=== PATIENT | male | born 1945 | race African-American/Black ===

== ENCOUNTER 2017-04-24 16:02 | Emergency (ER) | payer MEDICARE, MEDICAID ==
[~2017-04-24] VITALS: Ht 182.9 cm; Wt 86.0 kg
[2017-04-24 16:03] VITALS: BP 143/89
== END 2017-04-24 19:10 | disposition left against medical advice (07) ==
LOC: ER 16:25
DX: H57.8 Other specified disorders of eye and adnexa (principal); Z53.21 Procedure and treatment not carried out due to patient leaving prior to being seen by health care provider

== ENCOUNTER 2017-04-26 10:05 | Emergency (ER) | payer MEDICARE, MEDICAID ==
[~2017-04-26] VITALS: Ht 185.4 cm; Wt 75.3 kg
[2017-04-26] MEDS ORDERED: PILOCARPINE HCL 2% OPHTH DROPS 15ML RIGHTEYE SCH (16:15)
[2017-04-26] MEDS ORDERED: TIMOLOL MALEATE 0.25% OPHTH DROPS 5ML RIGHTEYE SCH (16:15)
[2017-04-26] MEDS ORDERED: ACETAZOLAMIDE 250MG TABLET PO ONE (16:15)
[2017-04-26 23:00] VITALS: BP 113/67
== END 2017-04-27 07:30 | disposition home or self-care (01) ==
LOC: ER 11:11
DX: H54.61 Unqualified visual loss, right eye, normal vision left eye (principal); H40.9 Unspecified glaucoma; F17.210 Nicotine dependence, cigarettes, uncomplicated
CPT/HCPCS: 99284

== ENCOUNTER 2017-05-14 12:29 | Emergency (ER) | payer MEDICARE, MEDICAID ==
[~2017-05-14] VITALS: Ht 185.4 cm; Wt 86.0 kg
[2017-05-14 14:14] VITALS: BP 104/74
== END 2017-05-14 17:47 | disposition home or self-care (01) ==
LOC: ER 13:21
DX: H54.61 Unqualified visual loss, right eye, normal vision left eye (principal); H57.11 Ocular pain, right eye; H40.9 Unspecified glaucoma; F17.200 Nicotine dependence, unspecified, uncomplicated
CPT/HCPCS: 99283

== ENCOUNTER 2017-06-09 00:11 | Emergency (ER) | payer MEDICARE, MEDICAID ==
[~2017-06-09] VITALS: Ht 182.9 cm; Wt 72.0 kg
[2017-06-09 01:33] LABS: BASOPHILS % 1.2 % (0.0-2.0); EOSINOPHILS % 1.3 % (0.0-5.0); HEMATOCRIT. 34.8 % (42.0-52.0); LYMPHOCYTES % 24.9 % (20.0-50.0); MEAN CORPUSCULAR VOLUME 72.4 fL (80.0-94.0); MEAN PLATELET VOLUME 6.9 fl (7.4-10.4); MONOCYTES % 9.1 % (2.0-8.0); NEUTROPHILS % 63.5 % (40.0-76.0); PLATELET 178 x1000/uL (130-400); RED CELL DISTRIBUTION WIDTH 16.9 % (11.6-14.6)
[2017-06-09 01:35] LABS: CHLORIDE 106 mEq/L (98-107)
[2017-06-09 01:44] LABS: CARBON DIOXIDE 28 mEq/L (21-32); ETHANOL BLOOD < 10 mg/dL
[2017-06-09 02:50] LABS: CLARITY URINE CLEAR (CLEAR); COLOR URINE YELLOW (YELLOW); GLUCOSE URINE NEGATIVE (NEGATIVE); KETONES URINE TRACE (NEGATIVE); LEUKOCYTE ESTERASE URINE 2+ (NEGATIVE); NITRITE URINE NEGATIVE (NEGATIVE); OCCULT BLOOD URINE 1+ (NEGATIVE); PROTEIN URINE NEGATIVE (NEGATIVE); SPECIFIC GRAVITY URINE 1.023 (1.005-1.030)
[2017-06-09 03:22] LABS: *AMPHETAMINES SCREEN URINE NEGATIVE (NEGATIVE); *BARBITURATES SCREEN URINE NEGATIVE (NEGATIVE); *BENZODIAZEPINES SCREEN URINE NEGATIVE (NEGATIVE); *COCAINE SCREEN URINE NEGATIVE (NEGATIVE); CANNABINOID URINE SCREEN NEGATIVE (NEGATIVE); METHADONE URINE SCREEN NEGATIVE (NEGATIVE); OPIATES URINE SCREEN NEGATIVE (NEGATIVE); PHENCYCLIDINE URINE SCREEN NEGATIVE (NEGATIVE)
[2017-06-09] MEDS ORDERED: CEFTRIAXONE 1 G PREMIX 50 ML IV NR (05:45)
[2017-06-09] MEDS ORDERED: ASPIRIN 325MG EC TABLET PO NR (05:45)
[2017-06-09 14:13] VITALS: BP 100/80
== END 2017-06-09 17:06 | disposition left against medical advice (07) ==
LOC: ER 00:11 → EDBEDREQ 03:11 → EDBEDREQSVC 04:23 → EDBEDREQTM 04:23 → CANRESERV 15:34 → ENRESERV 15:34 → CANBEDREQ 16:07 → ER 17:06
DX: R41.82 Altered mental status, unspecified (principal); H54.61 Unqualified visual loss, right eye, normal vision left eye; D18.1 Lymphangioma, any site
CPT/HCPCS: 36415; 70450; 71010; 80053; 80305; 81001; 84484; 85025; 87086; 93005; 96365; 99285; G0482; J0696

== ENCOUNTER 2017-06-23 23:15 | Inpatient (IN) | payer MEDICARE, MEDICAID ==
[~2017-06-23] VITALS: Ht 185.4 cm; Wt 71.2 kg
[2017-06-23 23:20] VITALS: BP 161/113
[2017-06-23 23:28] VITALS: BP 161/113
[2017-06-23 23:30] VITALS: BP 174/113
[2017-06-24] VITALS (87 sets, daily range): BP systolic 74–166; BP diastolic 47–109
[2017-06-24] MEDS ORDERED: NICARDIPINE 40MG/200ML PREMIX 200 ML IV PRN (01:00)
[2017-06-24] MEDS ORDERED: NICARDIPINE 50 MG in SODIUM CHLORIDE 0.9% 230 ML IV PRN (01:30)
[2017-06-24] MEDS: DEXAMETHASONE 4MG/ML 1ML VIAL IV SCH ×4 (01:31→18:27)
[2017-06-24] MEDS ORDERED: DONE5TAB7 PO (01:33)
[2017-06-24] MEDS ORDERED: MEMA5TAB7 PO (01:33)
[2017-06-24] MEDS ORDERED: ASPI-1158 PO (01:33)
[2017-06-24] MEDS ORDERED: DEXT 5%/0.9% NACL 1,000 ML IV SCH (02:00)
[2017-06-24] MEDS ORDERED: HYDRALAZINE HCL 50MG TABLET PO PRN (02:30)
[2017-06-24] MEDS ORDERED: PHENYTOIN SODIUM 100MG/2ML VIAL IV SCH ×2 (03:45→06:00)
[2017-06-24] MEDS: PHENYTOIN SODIUM 100MG/2ML VIAL IV SCH ×2 (04:18→13:53)
[2017-06-24 05:40] LABS: PARTIAL THROMBOPLASTIN TIME 31.9 sec (23.4-31.0); PROTHROMBIN TIME 10.9 sec (9.4-11.6)
[2017-06-24 05:42] LABS: BASOPHILS % 0.8 % (0.0-2.0); EOSINOPHILS % 0.8 % (0.0-5.0); HEMATOCRIT. 38.1 % (42.0-52.0); HEMOGLOBIN. 11.9 g/dL (14.0-18.0); LYMPHOCYTES % 15.4 % (20.0-50.0); MEAN CORPUSCULAR HEMOGLOBIN 22.7 pg (28.0-32.0); MEAN CORPUSCULAR VOLUME 72.7 fL (80.0-94.0); MEAN PLATELET VOLUME 6.9 fl (7.4-10.4); MONOCYTES % 4.9 % (2.0-8.0); NEUTROPHILS % 78.1 % (40.0-76.0); PLATELET 206 x1000/uL (130-400); RED BLOOD CELL COUNT 5.24 mill/uL (4.7-6.1); RED CELL DISTRIBUTION WIDTH 17.1 % (11.6-14.6)
[2017-06-24] MEDS: PANTOPRAZOLE 40MG DR TABLET PO SCH (06:02)
[2017-06-24 06:28] LABS: CARBON DIOXIDE 28 mEq/L (21-32); CHLORIDE 105 mEq/L (98-107); HDL CHOLESTEROL 65 mg/dL (40-59); LDL CHOLESTEROL 102 mg/dL (5-100)
[2017-06-24 06:31] LABS: TROPONIN I < 0.02 ng/mL (0.00-0.04)
[2017-06-24] MEDS ORDERED: LIDOCAINE 1%/EPI 1:200,000 10 ML VIAL IJ ONE (08:30)
[2017-06-24] MEDS ORDERED: POVIDONE-IODINE OINT 28.4GM TOP ONE (08:30)
[2017-06-24] MEDS ORDERED: GELATIN SPONGE,ABSORBABLE SZ 100 ONE (08:30)
[2017-06-24] MEDS ORDERED: BACITRACIN ZINC 15GM TUBE TOP ONE (08:31)
[2017-06-24] MEDS ORDERED: THROMBIN (BOVINE) 5000 UNITS/VIAL TOP ONE (08:31)
[2017-06-24] MEDS ORDERED: NORMAL SALINE 0.9% 10 ML SYR ONE (08:31)
[2017-06-24] MEDS ORDERED: BACITRACIN 50,000 UNITS/VIAL ONE (08:31)
[2017-06-24] MEDS ORDERED: PROPOFOL 200MG/20ML VIAL IV ONE (08:32)
[2017-06-24] MEDS ORDERED: ROCURONIUM BROMIDE 10MG/ML VIAL 5ML IV ONE (08:32)
[2017-06-24] MEDS ORDERED: FENTANYL CITRATE/PF 50MCG/ML 2ML VIAL ONE (09:37)
[2017-06-24] MEDS ORDERED: SODIUM CHLORIDE 0.9% 10ML VIAL ONE (10:18)
[2017-06-24] MEDS ORDERED: CEFAZOLIN SODIUM 1000MG/VIAL ONE (10:18)
[2017-06-24] MEDS ORDERED: PHENYLEPHRINE HCL 10 MG/ML 1ML (IV VIAL) IV ONE (10:21)
[2017-06-24] MEDS: CEFAZOLIN 1000MG PREMIX 50 ML IV SCH ×2 (13:53→21:38)
[2017-06-24] MEDS ORDERED: CEFAZOLIN SODIUM 1000MG/VIAL IV SCH (14:00)
[2017-06-24] MEDS: DEXT 5%/0.45% NACL 1000ML 1,000 ML IV SCH (16:00)
[2017-06-24] MEDS: MORPHINE SULFATE 2 MG/ML CPJ (NOT FOR IM USE) IV PRN ×3 (16:23→23:11)
[2017-06-25] VITALS (97 sets, daily range): BP systolic 84–173; BP diastolic 45–106
[2017-06-25] MEDS: PHENYTOIN SODIUM 100MG/2ML VIAL IV SCH ×4 (00:02→20:29)
[2017-06-25] MEDS: DEXAMETHASONE 4MG/ML 1ML VIAL IV SCH ×4 (00:03→18:49)
[2017-06-25] MEDS: DEXT 5%/0.45% NACL 1000ML 1,000 ML IV SCH (04:42)
[2017-06-25] MEDS: MORPHINE SULFATE 2 MG/ML CPJ (NOT FOR IM USE) IV PRN ×4 (04:57→20:27)
[2017-06-25] MEDS: CEFAZOLIN 1000MG PREMIX 50 ML IV SCH (05:25)
[2017-06-25] MEDS ORDERED: LORAZEPAM 2MG/ML CPJ IV PRN (15:30)
[2017-06-25] MEDS ORDERED: LORAZEPAM 2MG/ML CPJ IM PRN (15:30)
[2017-06-25 16:31] LABS: HEMATOCRIT. 36.6 % (42.0-52.0); HEMOGLOBIN. 11.2 g/dL (14.0-18.0); MEAN CORPUSCULAR HEMOGLOBIN 22.3 pg (28.0-32.0); MEAN CORPUSCULAR VOLUME 72.8 fL (80.0-94.0); MEAN PLATELET VOLUME 6.9 fl (7.4-10.4); PLATELET 211 x1000/uL (130-400); RED BLOOD CELL COUNT 5.02 mill/uL (4.7-6.1); RED CELL DISTRIBUTION WIDTH 17.4 % (11.6-14.6)
[2017-06-25 17:06] LABS: PLATELET ESTIMATE NORMAL
[2017-06-26] VITALS (70 sets, daily range): BP systolic 81–168; BP diastolic 30–123
[2017-06-26] MEDS: DEXAMETHASONE 4MG/ML 1ML VIAL IV SCH ×5 (00:14→23:19)
[2017-06-26] MEDS: MORPHINE SULFATE 2 MG/ML CPJ (NOT FOR IM USE) IV PRN (00:14)
[2017-06-26] MEDS: DEXT 5%/0.45% NACL 1000ML 1,000 ML IV SCH ×3 (01:20→19:27)
[2017-06-26] MEDS: PHENYTOIN SODIUM 100MG/2ML VIAL IV SCH (04:08)
[2017-06-26] MEDS: PANTOPRAZOLE 40MG DR TABLET PO SCH (05:39)
[2017-06-26] MEDS ORDERED: NICARDIPINE 100 MG in SODIUM CHLORIDE 0.9% 60 ML IV PRN (06:45)
[2017-06-26 09:14] LABS: HEMATOCRIT. 33.3 % (42.0-52.0); HEMOGLOBIN. 10.6 g/dL (14.0-18.0); MEAN CORPUSCULAR HEMOGLOBIN 22.7 pg (28.0-32.0); MEAN CORPUSCULAR VOLUME 71.5 fL (80.0-94.0); PLATELET 222 x1000/uL (130-400); RED BLOOD CELL COUNT 4.67 mill/uL (4.7-6.1); RED CELL DISTRIBUTION WIDTH 17.2 % (11.6-14.6)
[2017-06-26 09:55] LABS: CARBON DIOXIDE 27 mEq/L (21-32); CHLORIDE 100 mEq/L (98-107)
[2017-06-26 10:48] LABS: PLATELET ESTIMATE NORMAL
[2017-06-26 12:38] LABS: CLARITY URINE CLEAR (CLEAR); COLOR URINE YELLOW (YELLOW); KETONES URINE NEGATIVE (NEGATIVE); LEUKOCYTE ESTERASE URINE TRACE (NEGATIVE); NITRITE URINE NEGATIVE (NEGATIVE); PH URINE 6.5 (4.5-8.0); PROTEIN URINE NEGATIVE (NEGATIVE); SPECIFIC GRAVITY URINE 1.005 (1.005-1.030); UROBILINOGEN URINE 0.2 E.U./dL (0.2-1.0)
[2017-06-26 13:55] LABS: OCCULT BLOOD URINE 3+ (NEGATIVE)
[2017-06-26] MEDS: PHENYTOIN SODIUM 250MG/5ML VIAL IV SCH ×2 (14:18→21:58)
[2017-06-26] MEDS: LORAZEPAM 1MG TABLET PO PRN ×2 (17:09→23:19)
[2017-06-26] MEDS: ATORVASTATIN CALCIUM 10MG TABLET PO SCH (20:49)
[2017-06-27] VITALS: BP 143/86
[2017-06-27 04:00] VITALS: BP 116/79
[2017-06-27] MEDS: PHENYTOIN SODIUM 250MG/5ML VIAL IV SCH ×3 (04:21→20:31)
[2017-06-27] MEDS: LORAZEPAM 1MG TABLET PO PRN (06:14)
[2017-06-27] MEDS: DEXAMETHASONE 4MG/ML 1ML VIAL IV SCH ×4 (06:14→23:25)
[2017-06-27 06:36] LABS: HEMATOCRIT. 34.8 % (42.0-52.0); HEMOGLOBIN. 11.1 g/dL (14.0-18.0); LYMPHOCYTES % 10.4 % (20.0-50.0); MEAN CORPUSCULAR VOLUME 71.9 fL (80.0-94.0); MEAN PLATELET VOLUME 7.4 fl (7.4-10.4); MONOCYTES % 5.3 % (2.0-8.0); NEUTROPHILS % 84.3 % (40.0-76.0); PLATELET 234 x1000/uL (130-400); RED BLOOD CELL COUNT 4.84 mill/uL (4.7-6.1)
[2017-06-27 08:00] VITALS: BP 100/74
[2017-06-27] MEDS: PANTOPRAZOLE 40MG DR TABLET PO SCH (08:13)
[2017-06-27] MEDS: DEXT 5%/0.45% NACL 1000ML 1,000 ML IV SCH (11:39)
[2017-06-27 12:00] VITALS: BP 104/70
[2017-06-27 16:00] VITALS: BP 119/82
[2017-06-27 20:00] VITALS: BP 134/85
[2017-06-27] MEDS: ATORVASTATIN CALCIUM 10MG TABLET PO SCH (20:31)
[2017-06-28] VITALS: BP 124/77
[2017-06-28] MEDS: PHENYTOIN SODIUM 250MG/5ML VIAL IV SCH ×3 (04:28→19:42)
[2017-06-28] MEDS: DEXAMETHASONE 4MG/ML 1ML VIAL IV SCH ×4 (05:17→23:26)
[2017-06-28] MEDS: DEXT 5%/0.45% NACL 1000ML 1,000 ML IV SCH ×2 (05:17→23:26)
[2017-06-28] MEDS: LORAZEPAM 1MG TABLET PO PRN ×3 (07:33→13:52)
[2017-06-28] MEDS: PANTOPRAZOLE 40MG DR TABLET PO SCH (07:41)
[2017-06-28 08:00] VITALS: BP 131/82
[2017-06-28 12:00] VITALS: BP 118/71
[2017-06-28 16:00] VITALS: BP 135/74
[2017-06-28 20:00] VITALS: BP 118/77
[2017-06-28] MEDS: ATORVASTATIN CALCIUM 10MG TABLET PO SCH (20:13)
[2017-06-28] MEDS: HALOPERIDOL 1MG TABLET PO PRN (21:12)
[2017-06-29] VITALS (7 sets, daily range): BP systolic 102–141; BP diastolic 60–82
[2017-06-29] MEDS: PHENYTOIN SODIUM 250MG/5ML VIAL IV SCH (03:27)
[2017-06-29] MEDS: DEXAMETHASONE 4MG/ML 1ML VIAL IV SCH (05:10)
[2017-06-29] MEDS: LORAZEPAM 1MG TABLET PO PRN ×3 (08:48→21:27)
[2017-06-29] MEDS: PANTOPRAZOLE 40MG DR TABLET PO SCH (08:48)
[2017-06-29] MEDS: ATORVASTATIN CALCIUM 10MG TABLET PO SCH (21:27)
[2017-06-30] VITALS: BP 117/84
[2017-06-30 04:00] VITALS: BP 110/73
[2017-06-30] MEDS: LORAZEPAM 1MG TABLET PO PRN (05:41)
[2017-06-30 08:00] VITALS: BP 111/74
[2017-06-30] MEDS: PANTOPRAZOLE 40MG DR TABLET PO SCH (08:24)
[2017-06-30] MEDS: HALOPERIDOL 1MG TABLET PO PRN (09:35)
[2017-06-30 12:00] VITALS: BP 112/72
== END 2017-06-30 13:00 | DRG 25 ==
LOC: MICUNO 23:15 → 7WST 06-26 16:39
PROVIDERS: ADMIT Internal Medicine; ATTEND Internal Medicine
PROC: 009400Z Drainage of Intracranial Subdural Space with Drainage Device, Open Approach (ICD-10-PCS; principal; 2017-06-29)
PROC: 00H032Z Insertion of Monitoring Device into Brain, Percutaneous Approach (ICD-10-PCS; 2017-06-29)
PROC: 00U207Z Supplement Dura Mater with Autologous Tissue Substitute, Open Approach (ICD-10-PCS; 2017-06-29)
PROC: 4A103BD Monitoring of Intracranial Pressure, Percutaneous Approach (ICD-10-PCS; 2017-06-29)
DX: S06.5X9A Traumatic subdural hemorrhage with loss of consciousness of unspecified duration, initial encounter (principal); G93.40 Encephalopathy, unspecified; F03.90 Unspecified dementia, unspecified severity, without behavioral disturbance, psychotic disturbance, mood disturbance, and anxiety; R31.0 Gross hematuria; I10 Essential (primary) hypertension; Z91.81 History of falling; M19.90 Unspecified osteoarthritis, unspecified site; I25.10 Atherosclerotic heart disease of native coronary artery without angina pectoris; R29.6 Repeated falls; Z79.899 Other long term (current) drug therapy; Z79.82 Long term (current) use of aspirin; D18.1 Lymphangioma, any site; W18.39XA Other fall on same level, initial encounter; Y93.89 Activity, other specified; Y92.89 Other specified places as the place of occurrence of the external cause; Y99.8 Other external cause status
CPT/HCPCS: 36415; 70450; 76770; 80048; 80053; 80061; 80076; 81001; 84484; 85025; 85610; 85730; 92610; 93880; 97116; 97162; 97530; A4216; J0690; J1100; J1165; J2270; J2370; J2704; J3010; J3490; J7042; J7050; J7060; A4315